=== PATIENT | female | born 1950 | race Caucasian/White ===

== ENCOUNTER 2017-10-04 15:58 | Outpatient (CLI) | payer BC | END 2017-10-04 15:59 | disposition home or self-care (01) | LOC: BICMAMMO 15:58 | PROVIDERS: ATTEND Internal Medicine | DX: Z12.31 Encounter for screening mammogram for malignant neoplasm of breast (principal); Z80.3 Family history of malignant neoplasm of breast | CPT/HCPCS: 77063; 77067 ==

== ENCOUNTER 2018-10-11 07:51 | Outpatient (CLI) | payer BC ==
--- NOTE | 2018-10-11 10:35 | BD ---
DEXA BONE DENSITOMETRY: (Dual energy X-ray Absorptiometry) DATE: 10/11/2018. HISTORY: A 67-year-old white female for age-related, postmenopausal, osteoporosis screening examination. Height: 70 inches Weight: 295 pounds. Age of menopause: 52. COMPARISON: None available. FINDINGS: The bone mineral density (BMD) is given in grams per square centimeter (g/cm2): LUMBAR SPINE: BMD(g/cm2) T-score Z-score L1: 1.240 2.3 3.9 L2: 1.344 2.9 4.7 L3: 1.604 4.7 6.6 L4: 1.493 3.9 5.9 Total: 1.430 3.5 5.3 HIP: Femoral neck: 1.000 1.4 2.9 Total: 1.215 2.2 3.5 IMPRESSION: 1) The mean bone mineral density of the lumbar spine is normal. Fracture risk is not increased. 2) The bone mineral density of the femoral neck is normal. Fracture risk is not increased. ZAINAB Almanzar POS: TPC
--- NOTE | 2018-10-11 11:30 | MMO ---
Bilateral MAMMO Bilat Screen [facility]. CLINICAL HISTORY: Patient is 67 years old and is seen for screening. The patient has the following family history of breast cancer: sister, at age 71. The patient has no personal history of cancer. VIEWS: The views performed were: bilateral craniocaudal with tomosynthesis and bilateral mediolateral oblique with tomosynthesis. FILMS COMPARED: The present examination has been compared to prior imaging studies performed at [facility] on 08/21/2014, 09/17/2015, 10/02/2016 and 10/04/2017. MAMMOGRAM FINDINGS: There are scattered fibroglandular densities. There are no suspicious masses, suspicious calcifications, or new areas of architectural distortion. IMPRESSION: THERE IS NO MAMMOGRAPHIC EVIDENCE OF MALIGNANCY. A ROUTINE FOLLOW-UP MAMMOGRAM IN 1 YEAR IS RECOMMENDED. THE RESULTS OF THIS EXAM WERE SENT TO THE PATIENT. ACR BI-RADS Category 1 - Negative MAMMOGRAPHY NOTE: 1. A negative mammogram report should not delay a biopsy if a dominant of clinically suspicious mass is present. 2. Approximately 10% to 15% of breast cancers are not detected by mammography. 3. Adenosis and dense breasts may obscure an underlying neoplasm. Reported by: ROSA LAZCANO MD Electonically Signed: [id number]
== END 2018-10-11 07:52 | disposition home or self-care (01) ==
LOC: BICMAMMO 07:51
PROVIDERS: ATTEND Internal Medicine
DX: Z12.31 Encounter for screening mammogram for malignant neoplasm of breast (principal); Z13.820 Encounter for screening for osteoporosis; Z78.0 Asymptomatic menopausal state; Z80.3 Family history of malignant neoplasm of breast
CPT/HCPCS: 77063; 77067; 77080

== ENCOUNTER 2020-02-20 09:41 | Outpatient (CLI) | payer MEDICARE, OTHER ==
--- NOTE | 2020-02-20 12:22 | MRI ---
MRI Abdomen W WO Con History: Pancreatic cyst Comparison: CT abdomen and pelvis January 27, 2020, September 16, 2016 Findings: No pericardial pleural effusion. The infrarenal abdominal aortic aneurysm has not grown fro m the most recent CT exam. No hydronephrosis. Continued enlargement of the bilateral renal arterial ostia. High-grade parenchymal fatty atrophy of the pancreas. 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 No solid enhancement. No papillary projections. No dilatation of the main pancreatic duct. No hydronephrosis. No abnormal renal enhancing mass. No retroperitoneal periaortic adenopathy. 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 Fol low-up pancreatic protocol MRI 6 months is recommended per ACR white paper.
[2020-02-20] MEDS ORDERED: Magnevist 469MG/ML 20 ML VIAL ONE (13:34)
== END 2020-02-20 09:42 | disposition home or self-care (01) ==
LOC: BICMRI 09:41
PROVIDERS: ATTEND Internal Medicine
DX: K86.89 Other specified diseases of pancreas (principal); K86.2 Cyst of pancreas
CPT/HCPCS: 74183; A9579

== ENCOUNTER 2020-02-26 14:48 | Outpatient (CLI) | payer MEDICARE, OTHER ==
--- NOTE | 2020-02-26 15:52 | MMO ---
Bilateral MAMMO Bilat Screen [facility]. CLINICAL HISTORY: Patient is 69 years old and is seen for screening. The patient has the following family history of breast cancer: sister, at age 71. The patient has no personal history of cancer. VIEWS: The views performed were: bilateral craniocaudal with tomosynthesis and bilateral mediolateral oblique with tomosynthesis. FILMS COMPARED: The present examination has been compared to prior imaging studies performed at [facility] on 09/17/2015, 10/02/2016, 10/04/2017 and 10/11/2018. This study has been interpreted with the assistance of computer-aided detection. MAMMOGRAM FINDINGS: There are scattered fibroglandular densities. There is a new asymmetry seen in the upper-outer region of the left breast. In the right breast, there are no suspicious masses, calcifications or areas of architectural distortion. IMPRESSION: NEW ASYMMETRY IN THE LEFT BREAST REQUIRES ADDITIONAL EVALUATION. AN ULTRASOUND EXAM IS RECOMMENDED. ADDITIONAL IMAGING. THE RESULTS OF THIS EXAM WERE SENT TO THE PATIENT. ACR BI-RADS Category 0 - Incomplete: Need additional imaging evaluation. [facility] will notify the patient of the need for additional imaging services. MAMMOGRAPHY NOTE: 1. A negative mammogram report should not delay a biopsy if a dominant of clinically suspicious mass is present. 2. Approximately 10% to 15% of breast cancers are not detected by mammography. 3. Adenosis and dense breasts may obscure an underlying neoplasm. Reported by: MIRIAM MORA MD Electonically Signed: [id number]
== END 2020-02-26 14:49 | disposition home or self-care (01) ==
LOC: BICMAMMO 14:48
PROVIDERS: ATTEND Internal Medicine
DX: Z12.31 Encounter for screening mammogram for malignant neoplasm of breast (principal); N64.89 Other specified disorders of breast; Z80.3 Family history of malignant neoplasm of breast
CPT/HCPCS: 77063; 77067

== ENCOUNTER 2020-02-28 10:42 | Outpatient (CLI) | payer MEDICARE, OTHER ==
--- NOTE | 2020-02-28 11:48 | ULT ---
LEFT BREAST ULTRASOUND: HISTORY: Followup abnormality on prior mammogram, 02/26/2020. FINDINGS: In the 2 o'clock position of the left breast approximately 1-2 cm from the nipple there appear to be 2 small circumscribed hypodensities, the largest approximately 0.3 cm, the smaller one approximately 0.2 cm. These correspond to the 2 findings on mammogram which were small circumscribed nodules. The se are consistent with small cysts, although because of the very small size are not totally anechoic. IMPRESSION: BIRADS category 2, benign findings. Two small probable cysts in the 2 o'clock position of the left b reast approximately 1-2 cm from the nipple. Continued annual followup screening mammograms. POS: OFF
== END 2020-02-28 10:43 | disposition home or self-care (01) ==
LOC: BICULT 10:42
PROVIDERS: ATTEND Internal Medicine
DX: N64.89 Other specified disorders of breast (principal)

== ENCOUNTER 2021-02-06 13:44 | Outpatient (CLI) | payer MEDICARE, OTHER | END 2021-02-06 13:45 | disposition home or self-care (01) | LOC: BICRAD 13:44 | PROVIDERS: ATTEND Internal Medicine | DX: M25.511 Pain in right shoulder (principal); M25.512 Pain in left shoulder ==

== ENCOUNTER 2021-02-20 13:55 | Outpatient (CLI) | payer MEDICARE, OTHER ==
[2021-02-20 16:23] LABS: #Eosinphils 0.1 10x3/uL (0.0-0.5); #Monocytes 0.5 10x3/uL (0.0-1.1); #Neutrophils 2.5 10x3/uL (1.5-8.4); %Basophils 0.8 % (0.0-2.0); %Eosinophils 1.8 % (0.0-6.0); %Lymphocytes 38.9 % (18.0-47.0); %Monocytes 10.1 % (0.0-10.0); %Neutrophils 48.2 % (40.0-75.0); Hemoglobin 13.3 g/dL (12.0-15.5); Mean Corpuscular HGB CONC 33.5 g/dL (32.0-36.0); Mean Corpuscular Hemoglobin 31.8 pg (27.0-33.0); Mean Platelet Volume 12.3 fl (7.4-10.4); Platelet Count 174 10x3/uL (150-450); RBC Distribution Width 12.4 % (11.5-14.5); Red Blood Cell (RBC) Count 4.18 10x6/uL (3.90-5.03); White Blood Cell (WBC) Count 5.1 10x3/uL (3.5-10.5)
[2021-02-20 16:30] LABS: Prothrombin Time 10.8 sec (9.5-12.1)
[2021-02-20 16:36] LABS: Anion Gap 16 mmol/L (10-20); BUN (Urea Nitrogen) 24 mg/dL (9.8-20.1); Calc. Creatinine Clearance 0 mL/min (70-130); Calcium 9.3 mg/dL (7.8-10.44); Carbon Dioxide 23 mmol/L (23-31); Chloride 105 mmol/L (98-107); Glucose 93 mg/dL (80-115); Potassium 4.4 mmol/L (3.5-5.1); Sodium 140 mmol/L (136-145)
[2021-02-21 11:37] LABS: SARS-CoV-2 PCR by NAA Not Detected (NotDetected)
== END 2021-02-20 13:56 | disposition home or self-care (01) ==
LOC: LABBT 13:55
PROVIDERS: ATTEND Orthopaedic Surgery
DX: Z01.818 Encounter for other preprocedural examination (principal); Z20.822 Contact with and (suspected) exposure to COVID-19
CPT/HCPCS: 80048; 85025; 85610; 87081; 93005; U0003; U0005; 93010

== ENCOUNTER 2021-02-25 08:25 | Day surgery (SDC) | payer MEDICARE, OTHER ==
[2021-02-24 10:41] VITALS: BMI 39.4
[2021-02-25] MEDS ORDERED: ceFAZolin 2 GM/DEX 5% 100 ML BAG ONE (09:05)
[2021-02-25] MEDS ORDERED: Tranexamic Acid 1,000 MG/10 ML VIAL ONE (09:05)
[2021-02-25] MEDS ORDERED: Sodium Chloride 0.9% 100 ML ONE (09:05)
[2021-02-25] MEDS ORDERED: VANCOMYCIN 2 GRAM/400 ML BAG 2 GM in Premix Bag 1 BAG IVPB SCH (09:15)
[2021-02-25] MEDS ORDERED: Fentanyl 100 MCG/2 ML VIAL ONE ×2 (10:12→10:38)
[2021-02-25] MEDS ORDERED: Midazolam HCl 2 mg/2 ml Vial ONE (10:12)
[2021-02-25] MEDS ORDERED: Phenylephrine 10 MG/ML VIAL ONE ×2 (10:38→10:44)
[2021-02-25] MEDS ORDERED: Ropivacaine 2% HCl/PF (20 MG/10 ML VIAL) ONE (10:44)
[2021-02-25] MEDS ORDERED: Rocuronium Bromide 10 MG/ML (10ML VIAL) ONE (10:44)
[2021-02-25] MEDS ORDERED: Ondansetron PF 4 MG/2 ML Vial ONE (10:44)
[2021-02-25] MEDS ORDERED: Lidocaine 1% PF 5 ML VIAL ONE (10:44)
[2021-02-25] MEDS ORDERED: PROPOFOL 200 MG/20 ML VIAL ONE (10:44)
[2021-02-25] MEDS ORDERED: ePHEDrine 50 MG/ML VIAL ONE (10:44)
[2021-02-25] MEDS ORDERED: traMADol HCl 50 MG TAB PO PRN ×2 (10:45)
[2021-02-25] MEDS ORDERED: Promethazine HCl 25 MG/ML VIAL IM PRN (10:45)
[2021-02-25] MEDS ORDERED: Ondansetron PF 4 MG/2 ML Vial IVP PRN (10:45)
[2021-02-25] MEDS ORDERED: Fentanyl 100 MCG/2 ML VIAL IV PRN (10:45)
[2021-02-25] MEDS ORDERED: Zolpidem Tartrate 5 MG TAB PO PRN (10:45)
[2021-02-25] MEDS ORDERED: Ropivacaine 0.2% 550 ML 550 ML NERVE BLCK SCH (11:00)
== END 2021-02-25 15:04 | disposition home or self-care (01) ==
LOC: SDC 08:25
PROVIDERS: ATTEND Orthopaedic Surgery
PROC: 0RRK00Z Replacement of Left Shoulder Joint with Reverse Ball and Socket Synthetic Substitute, Open Approach (ICD-10-PCS; principal; 2021-02-25)
PROC: 3E0T3BZ Introduction of Anesthetic Agent into Peripheral Nerves and Plexi, Percutaneous Approach (ICD-10-PCS; 2021-02-25)
DX: M19.012 Primary osteoarthritis, left shoulder (principal); M75.102 Unspecified rotator cuff tear or rupture of left shoulder, not specified as traumatic; M12.811 Other specific arthropathies, not elsewhere classified, right shoulder; I10 Essential (primary) hypertension; Z79.1 Long term (current) use of non-steroidal anti-inflammatories (NSAID); Z79.82 Long term (current) use of aspirin; Z79.899 Other long term (current) drug therapy; Z88.5 Allergy status to narcotic agent; Z88.8 Allergy status to other drugs, medicaments and biological substances; Z96.641 Presence of right artificial hip joint
CPT/HCPCS: 23472; 64416; 97139; A4306; C1713; C1776; J2250; J2370; J2405; J2704; J2795; J3010; J3370; J3490

== ENCOUNTER 2021-08-22 08:56 | Outpatient (CLI) | payer MEDICARE | END 2021-08-22 08:57 | disposition home or self-care (01) | LOC: BICMAMMO 08:56 | PROVIDERS: ATTEND Internal Medicine | DX: Z12.31 Encounter for screening mammogram for malignant neoplasm of breast (principal); Z13.820 Encounter for screening for osteoporosis; Z78.0 Asymptomatic menopausal state; Z80.3 Family history of malignant neoplasm of breast | CPT/HCPCS: 77063; 77067; 77080 ==

== ENCOUNTER 2021-09-09 09:56 | Outpatient (CLI) | payer MEDICARE ==
[2021-09-09] MEDS ORDERED: Iopamidol-370 76% 500 ML 1 ML ONE (11:42)
== END 2021-09-09 09:57 | disposition home or self-care (01) ==
LOC: BICCT 09:56
PROVIDERS: ATTEND Internal Medicine Cardiovascular Disease
DX: I71.4 Abdominal aortic aneurysm, without rupture (principal); I72.2 Aneurysm of renal artery; K86.89 Other specified diseases of pancreas; I70.1 Atherosclerosis of renal artery
CPT/HCPCS: 74175; 82565; Q9967

== ENCOUNTER 2021-11-27 09:06 | Outpatient (CLI) | payer MEDICARE ==
[2021-11-27 10:24] LABS: #Basophils 0.1 10x3/uL (0.0-0.2); #Eosinphils 0.2 10x3/uL (0.0-0.5); #Monocytes 0.6 10x3/uL (0.0-1.1); #Neutrophils 2.6 10x3/uL (1.5-8.4); %Basophils 0.9 % (0.0-2.0); %Eosinophils 3.7 % (0.0-6.0); %Lymphocytes 35.6 % (18.0-47.0); %Monocytes 10.9 % (0.0-10.0); %Neutrophils 48.7 % (40.0-75.0); Hemoglobin 13.3 g/dL (12.0-15.5); Mean Corpuscular Hemoglobin 33.2 pg (27.0-33.0); Mean Corpuscular Volume 97.5 fl (81.6-98.3); Mean Platelet Volume 11.9 fl (7.4-10.4); Platelet Count 164 10x3/uL (150-450); RBC Distribution Width 13.1 % (11.5-14.5); Red Blood Cell (RBC) Count 4.01 10x6/uL (3.90-5.03); White Blood Cell (WBC) Count 5.3 10x3/uL (3.5-10.5)
[2021-11-27 10:39] LABS: Anion Gap 18 mmol/L (10-20); BUN (Urea Nitrogen) 27 mg/dL (9.8-20.1); Calc. Creatinine Clearance 0 mL/min (70-130); Calcium 9.6 mg/dL (7.8-10.44); Carbon Dioxide 22 mmol/L (23-31); Chloride 104 mmol/L (98-107); Estimated GFR 60; Glucose 94 mg/dL (80-115); Potassium 4.5 mmol/L (3.5-5.1); Sodium 139 mmol/L (136-145)
== END 2021-11-27 09:07 | disposition home or self-care (01) ==
LOC: LABBT 09:06
PROVIDERS: ATTEND Orthopaedic Surgery
DX: Z01.818 Encounter for other preprocedural examination (principal); Z20.822 Contact with and (suspected) exposure to COVID-19
CPT/HCPCS: 80048; 85025; 87081; 87811; 93005; 93010

== ENCOUNTER 2021-12-02 05:32 | Observation (INO) | payer MEDICARE ==
[2021-11-28 15:04] VITALS: BMI 40.0
[2021-12-02] MEDS ORDERED: Tranexamic Acid 1,000 MG/10 ML VIAL ONE (06:07)
[2021-12-02] MEDS ORDERED: Sodium Chloride 0.9% 100 ML ONE ×2 (06:08→06:09)
[2021-12-02] MEDS ORDERED: CEFAZOLIN 2 GM VIAL ONE (06:08)
[2021-12-02] MEDS ORDERED: Famotidine/PF 20 mg/2ml Vial ONE (06:15)
[2021-12-02] MEDS ORDERED: Tranexamic Acid 1,000 MG in Sodium Chloride 0.9% 100 ML IVPB SCH (06:15)
[2021-12-02] MEDS ORDERED: Bupivacaine PF 0.5% 30 ML VIAL ONE (06:27)
[2021-12-02] MEDS ORDERED: VANCOMYCIN 2 GRAM/500 ML BAG 2 GM in Premix Bag 1 BAG IVPB SCH (06:30)
[2021-12-02] MEDS ORDERED: Lidocaine 1% (PF) 30 ML VIAL ONE (06:34)
[2021-12-02] MEDS ORDERED: Fentanyl 100 MCG/2 ML VIAL ONE ×2 (06:34→09:26)
[2021-12-02] MEDS ORDERED: Midazolam HCl 2 mg/2 ml Vial ONE (06:34)
[2021-12-02 06:43] LABS: PTT 28.1 sec (22.9-36.1)
[2021-12-02] MEDS ORDERED: Acetaminophen 325 MG TAB PO PRN (06:54)
[2021-12-02] MEDS ORDERED: diphenhydrAMINE 25 MG CAP PO PRN (06:54)
[2021-12-02] MEDS ORDERED: Promethazine HCl 25 MG/ML VIAL IM PRN ×3 (06:54→08:12)
[2021-12-02] MEDS ORDERED: Ondansetron PF 4 MG/2 ML Vial IVP PRN ×2 (06:54→07:30)
[2021-12-02] MEDS ORDERED: Zolpidem Tartrate 5 MG TAB PO PRN ×2 (06:54→07:30)
[2021-12-02] MEDS ORDERED: HYDROcodone/Acetaminophen 10/325 mg Tablet PO PRN ×2 (06:54)
[2021-12-02] MEDS ORDERED: HYDROcodone/Acetaminophen 7.5/325 mg Tablet PO PRN (07:17)
[2021-12-02] MEDS ORDERED: Fentanyl 100 MCG/2 ML VIAL SLOW IVP PRN (07:19)
[2021-12-02] MEDS ORDERED: Ropivacaine 0.5% HCl/PF (150 MG/30 ML VIAL) ONE (07:21)
[2021-12-02] MEDS ORDERED: PROPOFOL 200 MG/20 ML VIAL ONE (07:21)
[2021-12-02] MEDS ORDERED: Ketorolac Tromethamine 30 MG/ML VIAL ONE (07:21)
[2021-12-02] MEDS ORDERED: Ropivacaine 0.2% 550 ML 550 ML NERVE BLCK SCH (07:30)
[2021-12-02] MEDS ORDERED: traMADol HCl 50 MG TAB PO PRN ×2 (07:30)
[2021-12-02] MEDS ORDERED: fentaNYL Citrate/PF 100 MCG/2 ML SYRINGE ONE (07:37)
[2021-12-02] MEDS ORDERED: Morphine 10 MG/ML VIAL ONE (07:57)
[2021-12-02] MEDS ORDERED: Promethazine HCl 25 MG/ML VIAL IVPB PRN (08:12)
[2021-12-02] MEDS ORDERED: HYDROmorphone 2 MG/ML VIAL SLOW IVP PRN (08:12)
[2021-12-02] MEDS ORDERED: Meperidine HCl/PF 25 MG/ML VIAL SLOW IVP PRN (08:12)
[2021-12-02] MEDS: Acetaminophen 500 MG TAB PO SCH ×2 (11:26→21:53)
[2021-12-02] MEDS: Folic Acid 1 MG TAB PO SCH (11:26)
[2021-12-02] MEDS: Aspirin 81 mg Enteric Coated Tablet PO SCH ×2 (11:26→21:53)
[2021-12-02] MEDS: Valsartan 80 MG TAB PO SCH (11:27)
[2021-12-02] MEDS: Ketorolac Tromethamine 30 MG/ML VIAL IVP SCH ×2 (13:18→18:14)
[2021-12-02] MEDS: CEFAZOLIN 2 GM in Sodium Chloride 0.9% 100 ML IVPB SCH ×2 (13:19→21:53)
[2021-12-02] MEDS: Sodium Chloride 0.9% 1,000 ML IV SCH ×2 (13:23→18:14)
[2021-12-02] MEDS ORDERED: Ketorolac Tromethamine 30 MG/ML VIAL IVP SCH (14:00)
[2021-12-02] MEDS ORDERED: Atorvastatin Calcium 10 MG TAB PO SCH (21:00)
[2021-12-03] MEDS: Ketorolac Tromethamine 30 MG/ML VIAL IVP SCH ×3 (00:07→15:59)
[2021-12-03] MEDS: HYDROcodone/Acetaminophen 7.5/325 mg Tablet PO PRN ×2 (00:07→09:20)
[2021-12-03] MEDS: Sodium Chloride 0.9% 1,000 ML IV SCH ×2 (03:03→15:59)
[2021-12-03 05:50] LABS: Hemoglobin 11.1 g/dL (12.0-16.0); Mean Corpuscular HGB CONC 32.1 g/dL (32.0-36.0); Mean Corpuscular Hemoglobin 33.3 pg (27.0-31.0); Mean Platelet Volume 9.6 fL (7.4-10.4); Platelet Count 145 thou/uL (130-400); Red Blood Cell (RBC) Count 3.35 mill/uL (4.20-5.40); White Blood Cell (WBC) Count 8.4 thou/uL (4.8-10.8)
[2021-12-03] MEDS ORDERED: Ferrous Gluconate 324 MG TAB PO SCH (08:00)
[2021-12-03] MEDS ORDERED: Multivitamin W/ Minerals 1 TAB PO SCH (09:00)
[2021-12-03] MEDS ORDERED: Senokot S 8.6-50 MG TAB PO SCH (09:00)
[2021-12-03] MEDS: Acetaminophen 500 MG TAB PO SCH (09:18)
[2021-12-03] MEDS: Aspirin 81 mg Enteric Coated Tablet PO SCH (09:18)
[2021-12-03] MEDS: Folic Acid 1 MG TAB PO SCH (09:19)
[2021-12-03] MEDS: Valsartan 80 MG TAB PO SCH (09:19)
[2021-12-03 12:45] VITALS: BP 102/68; TEMP 97.9
== END 2021-12-03 15:15 | disposition home or self-care (01) ==
LOC: SDC 05:32 → SJJU 11:14
PROVIDERS: ADMIT Orthopaedic Surgery; ATTEND Orthopaedic Surgery
PROC: 0SRD0J9 Replacement of Left Knee Joint with Synthetic Substitute, Cemented, Open Approach (ICD-10-PCS; principal; 2021-12-02)
DX: M17.12 Unilateral primary osteoarthritis, left knee (principal); I10 Essential (primary) hypertension; I73.9 Peripheral vascular disease, unspecified; Z79.899 Other long term (current) drug therapy; Z88.8 Allergy status to other drugs, medicaments and biological substances; Z96.641 Presence of right artificial hip joint; Z79.82 Long term (current) use of aspirin
CPT/HCPCS: 20985; 27447; 73560; 85027; 85610; 85730; 96374; 96375; 96376 ×2; 97110 ×2; 97116; 97530 ×2; A4306; C1713; C1776; G0378 ×2; J3370; 36415; J0690; J1885; J2001; J2250; J2270; J2704; J2795; J3010; J3490; J7030; S0020; S0028

== ENCOUNTER 2022-10-13 07:50 | Inpatient (IN) | payer MEDICARE ==
[2022-10-13 08:50] LABS: #Eosinphils 0.2 thou/uL (0.0-0.7); #Monocytes 0.6 thou/uL (0.11-0.59); %Basophils 0.7 % (0.0-1.0); %Eosinophils 3.6 % (0.0-10.0); %Lymphocytes 30.9 % (21.0-51.0); %Monocytes 10.3 % (0.0-10.0); %Neutrophils 54.5 % (42.0-75.0); Hematocrit 40.8 % (36.0-47.0); Hemoglobin 13.4 g/dL (12.0-16.0); Mean Corpuscular HGB CONC 32.8 g/dL (32.0-36.0); Mean Corpuscular Hemoglobin 32.4 pg (27.0-31.0); Mean Corpuscular Volume 98.8 fl (78.0-98.0); Mean Platelet Volume 10.9 fL (7.4-10.4); Platelet Count 171 10x3/uL (130-400); RBC Distribution Width 13.1 % (11.5-14.5); Red Blood Cell (RBC) Count 4.13 mill/uL (4.20-5.40); White Blood Cell (WBC) Count 5.6 10x3/uL (4.8-10.8)
[2022-10-13 09:10] LABS: Anion Gap 13 mmol/L (10-20); BUN (Urea Nitrogen) 15 mg/dL (9.8-20.1); Calc. Creatinine Clearance 107 mL/min (70-130); Calcium 9.6 mg/dL (7.8-10.44); Carbon Dioxide 24 mmol/L (23-31); Chloride 106 mmol/L (98-107); Estimated GFR 64; Glucose 99 mg/dL (80-115); Potassium 4.3 mmol/L (3.5-5.1); Sodium 139 mmol/L (136-145)
[2022-10-13] MEDS ORDERED: Protamine Sulfate 50 MG/5 ML VIAL ONE ×2 (09:17→09:46)
[2022-10-13] MEDS ORDERED: Heparin 10,000 UNITS/ 10 ML VIAL ONE (09:17)
[2022-10-13] MEDS ORDERED: EPINEPHrine 1 MG/ML AMP ONE (09:17)
[2022-10-13] MEDS ORDERED: Bupivacaine PF 0.5% 30 ML VIAL ONE (09:17)
[2022-10-13] MEDS ORDERED: CEFAZOLIN 2 GM VIAL ONE (09:30)
[2022-10-13] MEDS ORDERED: Sodium Chloride 0.9% 100 ML ONE (09:30)
[2022-10-13] MEDS ORDERED: SUGAMMADEX SODIUM 200 MG/2 ML VIAL ONE (09:46)
[2022-10-13] MEDS ORDERED: Midazolam HCl 2 mg/2 ml Vial ONE (09:46)
[2022-10-13] MEDS ORDERED: fentaNYL 50 mcg/mL 1 mL Vial ONE ×4 (09:46→14:51)
[2022-10-13] MEDS ORDERED: Ondansetron PF 4 MG/2 ML Vial ONE (09:50)
[2022-10-13] MEDS ORDERED: Dexamethasone 20 MG/5 ML VIAL ONE (09:50)
[2022-10-13] MEDS ORDERED: Lidocaine 1% PF 5 ML VIAL ONE (09:50)
[2022-10-13] MEDS ORDERED: PROPOFOL 200 MG/20 ML VIAL ONE (09:50)
[2022-10-13] MEDS ORDERED: ePHEDrine Sulfate 50 MG/10 ML VIAL ONE (09:50)
[2022-10-13] MEDS ORDERED: Rocuronium Bromide 10 MG/ML (10ML VIAL) ONE (09:50)
[2022-10-13] MEDS ORDERED: niCARdipine 25 MG/10 ML SDV ONE (11:26)
[2022-10-13] MEDS ORDERED: hydrALAZINE 20 MG/ML VIAL ONE ×2 (13:58→16:00)
[2022-10-13] MEDS ORDERED: fentaNYL 50 mcg/mL 1 mL Vial SLOW IVP PRN ×2 (16:33)
[2022-10-13] MEDS ORDERED: hydrALAZINE 20 MG/ML VIAL SLOW IVP PRN (16:33)
[2022-10-13] MEDS ORDERED: Ondansetron PF 4 MG/2 ML Vial IVP PRN (16:33)
[2022-10-13] MEDS ORDERED: Acetaminophen 325 MG TAB PO PRN (16:33)
[2022-10-13] MEDS ORDERED: Promethazine HCl 25 MG/ML VIAL IM PRN (16:33)
[2022-10-13] MEDS: Sodium Chloride 0.9% 1,000 ML IV SCH (16:57)
[2022-10-13 17:31] VITALS: BMI 40.5
[2022-10-13] MEDS: CEFAZOLIN 2 GM in Sodium Chloride 0.9% 100 ML IVPB SCH (18:27)
[2022-10-14] MEDS: CEFAZOLIN 2 GM in Sodium Chloride 0.9% 100 ML IVPB SCH (01:28)
[2022-10-14] MEDS: Sodium Chloride 0.9% 1,000 ML IV SCH (01:30)
[2022-10-14 04:42] LABS: #Monocytes 0.5 thou/uL (0.11-0.59); #Neutrophils 3.8 thou/uL (1.40-6.50); %Basophils 0.2 % (0.0-1.0); %Lymphocytes 15.3 % (21.0-51.0); %Monocytes 9.8 % (0.0-10.0); %Neutrophils 74.5 % (42.0-75.0); Hematocrit 36.8 % (36.0-47.0); Hemoglobin 12.2 g/dL (12.0-16.0); Mean Corpuscular HGB CONC 33.2 g/dL (32.0-36.0); Mean Corpuscular Hemoglobin 32.2 pg (27.0-31.0); Mean Corpuscular Volume 97.1 fl (78.0-98.0); Mean Platelet Volume 11.2 fL (7.4-10.4); Platelet Count 157 10x3/uL (130-400); RBC Distribution Width 13.3 % (11.5-14.5); Red Blood Cell (RBC) Count 3.79 mill/uL (4.20-5.40); White Blood Cell (WBC) Count 5.1 10x3/uL (4.8-10.8)
[2022-10-14 04:53] LABS: Anion Gap 14 mmol/L (10-20); BUN (Urea Nitrogen) 14 mg/dL (9.8-20.1); Calc. Creatinine Clearance 123 mL/min (70-130); Carbon Dioxide 18 mmol/L (23-31); Chloride 109 mmol/L (98-107); Estimated GFR 74; Glucose 109 mg/dL (80-115); Sodium 137 mmol/L (136-145)
[2022-10-14 07:58] VITALS: TEMP 98
[2022-10-14] MEDS ORDERED: Folic Acid 1 MG TAB PO SCH (09:00)
[2022-10-14] MEDS ORDERED: Aspirin 81 mg Enteric Coated Tablet PO SCH (09:00)
[2022-10-14] MEDS ORDERED: Acetaminophen 500 MG TAB PO SCH (09:00)
[2022-10-14] MEDS ORDERED: Atorvastatin Calcium 10 MG TAB PO SCH (21:00)
[2022-10-15] MEDS ORDERED: Cyanocobalamin (Vitamin B-12) 1,000 MCG TAB PO SCH (09:00)
== END 2022-10-14 09:25 | disposition home or self-care (01) | DRG 269 ==
LOC: SURG A 07:50 → IMCU/EMU 16:43
PROVIDERS: ADMIT Thoracic Surgery (Cardiothoracic Vascular Surgery); ATTEND Thoracic Surgery (Cardiothoracic Vascular Surgery)
PROC: 04V03DZ Restriction of Abdominal Aorta with Intraluminal Device, Percutaneous Approach (ICD-10-PCS; principal; 2022-10-14)
PROC: B4101ZZ Fluoroscopy of Abdominal Aorta using Low Osmolar Contrast (ICD-10-PCS; 2022-10-14)
DX: I71.43 Infrarenal abdominal aortic aneurysm, without rupture (principal); I10 Essential (primary) hypertension; M19.90 Unspecified osteoarthritis, unspecified site; Z96.642 Presence of left artificial hip joint; Z96.612 Presence of left artificial shoulder joint; Z96.652 Presence of left artificial knee joint; Z98.49 Cataract extraction status, unspecified eye; Z90.710 Acquired absence of both cervix and uterus; Z90.722 Acquired absence of ovaries, bilateral; Z82.49 Family history of ischemic heart disease and other diseases of the circulatory system; Z88.8 Allergy status to other drugs, medicaments and biological substances; Z91.048 Other nonmedicinal substance allergy status
CPT/HCPCS: 36415; 80048; 85025; 86850; 86900; 86901; 93005; 93010; C1760; C1769; C1889; C1894; J0171; J0360; J1100; J1644; J2250; J2405; J2704; J2720; J3010; J3490; S0020

== ENCOUNTER 2022-12-11 13:07 | Outpatient (CLI) | payer MEDICARE | END 2022-12-11 13:08 | disposition home or self-care (01) | LOC: BICMAMMO 13:07 | PROVIDERS: ATTEND Internal Medicine | DX: R92.1 Mammographic calcification found on diagnostic imaging of breast (principal) | CPT/HCPCS: 77065; G0279 ==

== ENCOUNTER → 2022-12-17 | Day surgery (SDC) | payer MEDICARE | LOC: MAMMO 06:43 | PROVIDERS: ATTEND Internal Medicine | PROC: 0H9U3ZX Drainage of Left Breast, Percutaneous Approach, Diagnostic (ICD-10-PCS; principal; 2022-12-17) | DX: C50.412 Malignant neoplasm of upper-outer quadrant of left female breast (principal); Z17.0 Estrogen receptor positive status [ER+] | CPT/HCPCS: 19081; 76098; A4648; 88305; 88341; 88342 ==

== ENCOUNTER 2023-01-08 13:06 | Outpatient (CLI) | payer MEDICARE | END 2023-01-08 13:07 | disposition home or self-care (01) | LOC: BICMRI 13:06 | PROVIDERS: ATTEND Specialist | DX: C50.912 Malignant neoplasm of unspecified site of left female breast (principal) | CPT/HCPCS: 82565; C8908; A9577 ==

== ENCOUNTER 2023-01-12 09:35 | Outpatient (CLI) | payer MEDICARE ==
[2023-01-12 13:01] LABS: #Basophils 0.1 10x3/uL (0.0-0.2); #Eosinphils 0.2 10x3/uL (0.0-0.5); #Monocytes 0.7 10x3/uL (0.0-1.1); #Neutrophils 2.7 10x3/uL (1.5-8.4); %Basophils 0.9 % (0.0-2.0); %Eosinophils 4.2 % (0.0-6.0); %Lymphocytes 35.9 % (18.0-47.0); %Monocytes 11.7 % (0.0-10.0); %Neutrophils 47.1 % (40.0-75.0); Hemoglobin 14.2 g/dL (12.0-15.5); Mean Corpuscular Hemoglobin 32.5 pg (27.0-33.0); Mean Corpuscular Volume 98.4 fl (81.6-98.3); Mean Platelet Volume 11.3 fl (7.4-10.4); Platelet Count 189 10x3/uL (150-450); RBC Distribution Width 13.2 % (11.5-14.5); Red Blood Cell (RBC) Count 4.37 10x6/uL (3.90-5.03); White Blood Cell (WBC) Count 5.7 10x3/uL (3.5-10.5)
[2023-01-12 14:29] LABS: Anion Gap 14 mmol/L (10-20); BUN (Urea Nitrogen) 17 mg/dL (9.8-20.1); Calc. Creatinine Clearance 0 mL/min (70-130); Calcium 9.3 mg/dL (7.8-10.44); Carbon Dioxide 25 mmol/L (23-31); Chloride 103 mmol/L (98-107); Estimated GFR 74; Glucose 88 mg/dL (80-115); Potassium 4.1 mmol/L (3.5-5.1); Sodium 138 mmol/L (136-145)
== END 2023-01-12 09:36 | disposition home or self-care (01) ==
LOC: LABBT 09:35
PROVIDERS: ATTEND Specialist
DX: Z01.818 Encounter for other preprocedural examination (principal); D05.12 Intraductal carcinoma in situ of left breast; C50.912 Malignant neoplasm of unspecified site of left female breast
CPT/HCPCS: 71046; 80048; 85025; 93005; 93010

== ENCOUNTER 2023-01-19 06:49 | Day surgery (SDC) | payer MEDICARE ==
[2023-01-12 10:24] VITALS: BMI 39.9
[2023-01-19] MEDS ORDERED: Acetaminophen 500 MG TAB ONE (08:48)
[2023-01-19] MEDS ORDERED: CEFAZOLIN 2 GM VIAL ONE (08:48)
[2023-01-19] MEDS ORDERED: Ketorolac Tromethamine 30 MG/ML VIAL ONE (08:48)
[2023-01-19] MEDS ORDERED: Sodium Chloride 0.9% 100 ML ONE (08:49)
[2023-01-19] MEDS ORDERED: Lidocaine 1% MPF 2 ML VIAL ONE (08:52)
[2023-01-19] MEDS ORDERED: PROPOFOL 20 ML ONE ×2 (10:31→12:21)
[2023-01-19] MEDS ORDERED: Ondansetron PF 4 MG/2 ML Vial ONE ×2 (10:31→11:06)
[2023-01-19] MEDS ORDERED: Dexamethasone 4 mg/ml Vial ONE (10:31)
[2023-01-19] MEDS ORDERED: Lidocaine 1% PF 5 ML VIAL ONE ×2 (10:31→11:06)
[2023-01-19] MEDS ORDERED: Bupivacaine 0.25% HCL 30 ML VIAL ONE (10:39)
[2023-01-19] MEDS ORDERED: EPINEPHrine 1 MG/ML VIAL ONE (10:39)
[2023-01-19] MEDS ORDERED: Isosulfan Blue 50 MG/5 ML VIAL ONE (10:39)
[2023-01-19] MEDS ORDERED: Lidocaine 2% PF 5 ML VIAL ONE (10:40)
[2023-01-19] MEDS ORDERED: Dexamethasone 20 MG/5 ML VIAL ONE (11:06)
[2023-01-19] MEDS ORDERED: PROPOFOL 200 MG/20 ML VIAL ONE (11:06)
[2023-01-19] MEDS ORDERED: ePHEDrine Sulfate 50 MG/10 ML VIAL ONE ×2 (11:06→11:34)
[2023-01-19] MEDS ORDERED: fentaNYL PF 100 MCG/2 ML SYRINGE ONE (11:11)
== END 2023-01-19 14:10 | disposition home or self-care (01) ==
LOC: SDC 06:49
PROVIDERS: ATTEND Specialist
PROC: 0HBU0ZZ Excision of Left Breast, Open Approach (ICD-10-PCS; principal; 2023-01-19)
DX: C50.412 Malignant neoplasm of upper-outer quadrant of left female breast (principal); I10 Essential (primary) hypertension; Z79.82 Long term (current) use of aspirin; Z90.710 Acquired absence of both cervix and uterus; Z96.641 Presence of right artificial hip joint; Z88.5 Allergy status to narcotic agent; Z88.8 Allergy status to other drugs, medicaments and biological substances
CPT/HCPCS: 19281; 19301; 38500; 76098; 78195; A9541; J0171; Q9968; 88307; 88342; J1100; J1885; J2001; J2405; J2704; J3490; S0020

== ENCOUNTER 2023-02-12 08:51 | Outpatient (CLI) | payer MEDICARE | END 2023-02-12 08:52 | disposition home or self-care (01) | LOC: BICCT 08:51 | PROVIDERS: ATTEND Thoracic Surgery (Cardiothoracic Vascular Surgery) | DX: I71.20 Thoracic aortic aneurysm, without rupture, unspecified (principal); I72.3 Aneurysm of iliac artery; I72.2 Aneurysm of renal artery; I71.22 Aneurysm of the aortic arch, without rupture | CPT/HCPCS: 71275; 74174 ==

== ENCOUNTER 2023-03-29 09:13 | Outpatient (CLI) | payer MEDICARE | END 2023-03-29 09:14 | disposition home or self-care (01) | LOC: BICMAMMO 09:13 | PROVIDERS: ATTEND Internal Medicine | DX: Z13.820 Encounter for screening for osteoporosis (principal); C50.412 Malignant neoplasm of upper-outer quadrant of left female breast | CPT/HCPCS: 77080 ==

== ENCOUNTER 2024-01-06 08:48 | Outpatient (CLI) | payer MEDICARE | END 2024-01-06 08:49 | disposition home or self-care (01) | LOC: BICMAMMO 08:48 | PROVIDERS: ATTEND Specialist | DX: Z08 Encounter for follow-up examination after completed treatment for malignant neoplasm (principal); Z85.3 Personal history of malignant neoplasm of breast | CPT/HCPCS: 77066; G0279 ==

== ENCOUNTER 2024-10-10 09:15 | Outpatient (CLI) | payer MEDICARE | END 2024-10-10 09:16 | disposition home or self-care (01) | LOC: SCSMRI 09:15 | PROVIDERS: ATTEND Student in an Organized Health Care Education/Training Program | DX: M47.812 Spondylosis without myelopathy or radiculopathy, cervical region (principal); M50.321 Other cervical disc degeneration at C4-C5 level; M48.02 Spinal stenosis, cervical region; M50.322 Other cervical disc degeneration at C5-C6 level; M50.323 Other cervical disc degeneration at C6-C7 level; M50.33 Other cervical disc degeneration, cervicothoracic region; M48.03 Spinal stenosis, cervicothoracic region | CPT/HCPCS: 72141 ==